=== PATIENT | male | born 1975 | race Two or more races ===

== ENCOUNTER 2024-12-13 09:47 | Emergency (ER) | payer OTHER ==
[2024-12-13 09:59] VITALS: BP 134/82; PULSE 93; RESP 20; TEMP 97.9; BMI 31.6
== END 2024-12-13 12:32 | disposition home or self-care (01) ==
LOC: JERFT 09:47
DX: M54.50 Low back pain, unspecified (principal); M54.2 Cervicalgia; V43.12XA Car passenger injured in collision with other type car in nontraffic accident, initial encounter; Y92.410 Unspecified street and highway as the place of occurrence of the external cause
CPT/HCPCS: 72100-TC-FY; 99283-25

== ENCOUNTER 2025-01-09 21:35 | Emergency (ER) | payer OTHER ==
[2025-01-09 21:40] VITALS: TEMP 97.7; BMI 31.6
[2025-01-09 21:53] LABS: EPI CELLS 11 /uL (0-25.1); HYALINE CASTS 1 /uL (0-3.1); PH,URINE 5.5 (5.0-8.0); URINE APPEARANCE CLEAR; URINE BACTERIA 40 /uL (0-1359); URINE BILIRUBIN NEGATIVE (NEGATIVE); URINE COLOR YELLOW; URINE GLUCOSE (UA) 3+ (NEGATIVE); URINE KETONE TRACE (NEGATIVE); URINE LEUK ESTERASE NEGATIVE (NEGATIVE); URINE NITRITE NEGATIVE (NEGATIVE); URINE PROTEIN TRACE (NEGATIVE); URINE RBC 271 /uL (0-23.9); URINE UROBILINOGEN 0.2 mg/dL (0.2-1.0)
[2025-01-09] MEDS ORDERED: SULFAMETHOXAZOLE/TRIMETHOPRIM 800MG/160MG D.S. TABLET ONE (22:45)
[2025-01-09] MEDS: SULFAMETHOXAZOLE/TRIMETHOPRIM 800MG/160MG D.S. TABLET PO ONE (22:47)
[2025-01-09 23:01] VITALS: BP 148/80; PULSE 80; RESP 19
== END 2025-01-09 23:02 | disposition home or self-care (01) ==
LOC: JER 21:35
DX: N39.0 Urinary tract infection, site not specified (principal); R30.0 Dysuria; R30.9 Painful micturition, unspecified; K62.89 Other specified diseases of anus and rectum
CPT/HCPCS: 81003; 87086; 99283-25